=== PATIENT | female | born 1950 | race Caucasian/White ===

== ENCOUNTER → 2022-09-13 | Outpatient (CLI) | payer MEDICARE, OTHER ==
[~2022-09-13] MED LIST: CARDI-OMEGA1000 MG PO; EYE VITAMIN; GLUCOSAMINE & C1 CA1 PO; NATURE'S BLEND400 I1 PO; NORCO 325 MG-51 TA1 PO; NORFLEX100 MG PO; THYROID; VITAMIN B COMPL1 SGL PO
== END ==
LOC: CARDREHAB 09-04 16:27
DX: G47.10 Hypersomnia, unspecified (principal)
CPT/HCPCS: G0399

== ENCOUNTER 2022-11-16 09:15 | Outpatient (RCR) | payer MEDICARE, OTHER | END 2022-11-24 | disposition home or self-care (01) | LOC: PT | DX: M54.30 Sciatica, unspecified side (principal) ==

== ENCOUNTER → 2022-11-29 | Outpatient (CLI) | payer MEDICARE, OTHER | LOC: MAMMO 11:00 | DX: Z12.31 Encounter for screening mammogram for malignant neoplasm of breast (principal); N64.89 Other specified disorders of breast ==